=== PATIENT | female | born 1960 | race African-American/Black ===

== ENCOUNTER 2018-02-13 18:55 | Emergency (ER) | payer SELFPAY ==
[~2018-02-13] VITALS: Ht 162.6 cm; Wt 91.0 kg
[2018-02-13] MEDS ORDERED: SODIUM CHLORIDE 0.9% 1,000 ML IV ONE (21:24)
[2018-02-13] MEDS ORDERED: ONDANSETRON HCL 4MG/2ML INJ IV STA (21:24)
[2018-02-13] MEDS ORDERED: KETOROLAC 30MG/ML VIAL IV ONE (22:00)
[2018-02-13 22:05] LABS: HEMATOCRIT. 38.2 % (36.0-48.0); HEMOGLOBIN. 12.5 g/dL (12.0-16.0); MEAN CORPUSCULAR VOLUME 88.8 fL (81.0-99.0); MEAN PLATELET VOLUME 7.9 fl (7.4-10.4); PLATELET 332 x1000/uL (130-400); RED CELL DISTRIBUTION WIDTH 14.3 % (11.6-14.6)
[2018-02-13 22:07] LABS: CHLORIDE 101 mEq/L (98-107)
[2018-02-13 22:08] LABS: INR 1.1; PROTHROMBIN TIME 10.7 sec (9.1-11.1)
[2018-02-13 22:19] LABS: PLATELET ESTIMATE NORMAL
[2018-02-14 00:48] LABS: CLARITY URINE CLEAR (CLEAR); COLOR URINE YELLOW (YELLOW); KETONES URINE NEGATIVE (NEGATIVE); LEUKOCYTE ESTERASE URINE NEGATIVE (NEGATIVE); NITRITE URINE NEGATIVE (NEGATIVE); OCCULT BLOOD URINE 1+ (NEGATIVE); PROTEIN URINE NEGATIVE (NEGATIVE); SPECIFIC GRAVITY URINE 1.019 (1.005-1.030); UROBILINOGEN URINE 0.2 E.U./dL (0.2-1.0)
[2018-02-14 00:56] LABS: CANNABINOID URINE SCREEN PRESUMTIVE POSITIVE (NEGATIVE); METHADONE URINE SCREEN NEGATIVE (NEGATIVE); OPIATES URINE SCREEN PRESUMTIVE POSITIVE (NEGATIVE); PHENCYCLIDINE URINE SCREEN NEGATIVE (NEGATIVE)
[2018-02-14 00:57] LABS: *AMPHETAMINES SCREEN URINE NEGATIVE (NEGATIVE); *BARBITURATES SCREEN URINE NEGATIVE (NEGATIVE); *BENZODIAZEPINES SCREEN URINE NEGATIVE (NEGATIVE); *COCAINE SCREEN URINE NEGATIVE (NEGATIVE)
[2018-02-14 02:19] VITALS: BP 122/78
== END 2018-02-14 02:23 | disposition home or self-care (01) ==
LOC: ER 22:23
DX: R10.2 Pelvic and perineal pain (principal); F12.10 Cannabis abuse, uncomplicated; I10 Essential (primary) hypertension; Z71.51 Drug abuse counseling and surveillance of drug abuser
CPT/HCPCS: 36415; 76830; 76856; 80053; 80305; 81003; 83690; 85025; 85610; 87086; 96374; 96375; 99284; J1885; J2405; J7030